=== PATIENT | male | born 1965 | race Caucasian/White ===

== ENCOUNTER 2022-12-25 10:37 | Emergency (ER) | payer SELFPAY ==
[2022-12-25 10:44] VITALS: BP 135/87; PULSE 89; RESP 18; TEMP 97.8; BMI 22.4
[2022-12-25] MEDS ORDERED: ERYTHROMYCIN 0.5% OPHTHALMIC OINTMENT 3.5 GM TUBE OU STA (11:11)
[2022-12-25] MEDS ORDERED: ERYTHROMYCIN 0.5% OPHTHALMIC OINTMENT 3.5 GM TUBE ONE (11:27)
== END 2022-12-25 11:37 | disposition home or self-care (01) ==
LOC: JERFT 10:37
DX: R22.0 Localized swelling, mass and lump, head (principal); H00.012 Hordeolum externum right lower eyelid
CPT/HCPCS: 99283-25

== ENCOUNTER 2024-07-20 16:07 | Emergency (ER) | payer OTHER ==
[2024-07-20 16:21] VITALS: BP 121/74; PULSE 81; RESP 16; TEMP 97.3; BMI 23.7
[2024-07-20] MEDS ORDERED: FAMOTIDINE 20 MG/50 ML IVPB 20 MG/50 ML MG IVPB ONE (17:10)
[2024-07-20] MEDS ORDERED: MAG HYDROX/AL HYDROX/SIMETH 30 ML UNIT-DOSE CUP ONE (17:13)
[2024-07-20] MEDS: FAMOTIDINE 20 MG/50 ML IVPB 20 MG/50 ML MG IVPB ONE (17:14)
[2024-07-20] MEDS: SODIUM CHLORIDE 0.9% 500 ML INFUS.BAG IV ONE (17:14)
[2024-07-20] MEDS: MAG HYDROX/AL HYDROX/SIMETH 30 ML UNIT-DOSE CUP PO ONE (17:14)
[2024-07-20 17:16] LABS: BASO % 1.1 % (0-2.0); EOS % 3.5 % (0-4.5); HEMATOCRIT 44.7 % (35.4-49); HEMOGLOBIN 14.6 GM/dL (11.7-16.9); LYMPH % 31.7 % (8-40); MCH 30.8 pg (25.7-33.7); MCHC 32.8 g/dl (32.0-35.9); MEAN CELL VOLUME 93.8 fl (80-96); MEAN PLT VOLUME 8.6 fl (7.5-11.1); MONO % 4.6 % (3.8-10.2); NEUT % 59.1 % (42.8-82.8); PLATELET COUNT 210 10^3/uL (134-434); RBC 4.76 M/mm3 (4.00-5.60); RDW 15.1 % (11.9-15.9); WHITE BLOOD COUNT 6.1 K/mm3 (4.0-10.0)
[2024-07-20 17:35] LABS: POTASSIUM 4.3 mmol/L (3.5-5.1)
[2024-07-20 17:36] LABS: BLOOD UREA NITROGEN 15.4 mg/dL (7-18); CALCIUM 8.6 mg/dL (8.5-10.1); PH,URINE 5.5 (5.0-8.0); URINE APPEARANCE CLEAR; URINE BILIRUBIN NEGATIVE (NEGATIVE); URINE COLOR YELLOW; URINE GLUCOSE (UA) NEGATIVE (NEGATIVE); URINE KETONE NEGATIVE (NEGATIVE); URINE LEUK ESTERASE NEGATIVE (NEGATIVE); URINE NITRITE NEGATIVE (NEGATIVE); URINE PROTEIN NEGATIVE (NEGATIVE); URINE UROBILINOGEN 0.2 mg/dL (0.2-1.0)
[2024-07-20 17:37] LABS: ALBUMIN 3.8 g/dl (3.4-5.0)
[2024-07-20 17:41] LABS: BILIRUBIN,TOTAL 0.4 mg/dL (0.2-1)
== END 2024-07-20 19:41 | disposition left against medical advice (07) ==
LOC: JER 16:07
DX: K80.20 Calculus of gallbladder without cholecystitis without obstruction (principal); R10.13 Epigastric pain
CPT/HCPCS: 36415; 76705-TC; 80053; 81003; 83690; 85025; 93005; 93010; 99285-25